=== PATIENT | female | born 1940 | race Caucasian/White ===

== ENCOUNTER → 2017-04-04 | Outpatient (CLI) | payer OTHER | LOC: FIMAGING 09:14 | PROVIDERS: ATTEND Internal Medicine | DX: Z12.31 Encounter for screening mammogram for malignant neoplasm of breast (principal); Z80.3 Family history of malignant neoplasm of breast | CPT/HCPCS: G0202 ==

== ENCOUNTER 2017-04-06 18:47 | Emergency (ER) | payer OTHER ==
[2017-04-06 19:12] VITALS: PULSE 58
--- NOTE | 2017-04-06 20:16 | EDPHY ---
H & P Time Seen by Provider: 04/06/17 19:22 HPI/ROS: CHIEF COMPLAINT: Fall, right shoulder injury HISTORY OF PRESENT ILLNESS: 76-year-old female presents to the emergency department with right shoulder injury. The patient was accidentally knocked over by her horse and landed on her right side 2 hours prior to arrival. She did not hit her head or lose consciousness. She denies neck or back pain. Denies chest pain or difficulty breathing. She was having some right lower quadrant abdominal pain although she feels that this is muscular. She denies injury to her lower extremities or her left upper extremity. She is right-hand dominant. Her pain in her shoulders especially worse with movement. REVIEW OF SYSTEMS: Constitutional: No fever, no chills. Eyes: No double or blurry vision. ENT: No sore throat. Respiratory: No cough, no shortness of breath. Cardiac: No chest pain. Gastrointestinal: No abdominal pain, vomiting or diarrhea. Genitourinary: No dysuria. Musculoskeletal: No neck or back pain. Skin: No rashes. Neurological: No headache. Past Medical/Surgical History: Orthopedic surgeries, hypertension, high cholesterol, heart issues Social History: Single and lives in [place] Smoking Status: Never smoked Physical Exam: General Appearance: Alert, no distress. No visible signs of trauma to her head. She is mentating normally and answering questions appropriately. Eyes: Pupils equal and round. Extraocular motions are all intact. ENT: Mouth: Mucous membranes moist. Respiratory: No wheezing, rhonchi, or rales, lungs are clear to auscultation. Cardiovascular: Regular rate and rhythm. Gastrointestinal: Abdomen is soft and nontender, no masses, no rebound or guarding, bowel sounds normal. Neurological: Alert and oriented x 3, cranial nerves II through XII grossly intact Skin: Warm and dry, no rashes. Musculoskeletal: Nontender to palpate along the cervical, thoracic or lumbar spine. Neck is supple. Extremities: Limited range of motion of the right shoulder secondary to pain. Full range of motion of her right wrist and right elbow. Normal and equal strength for the upper extremity bilaterally. She is able to fully internally rotate her right shoulder although this does cause pain. She does have some mild pain with palpation of the posterior, proximal aspect of the right shoulder. Psychiatric: Patient is oriented X 3, there is no agitation. Constitutional: Initial Vital Signs Heart Rate 58 L 07/26/17 19:08 Respiratory Rate 16 04/06/17 19:08 Blood Pressure 173/65 H 04/06/17 19:08 O2 Sat (%) 95 04/06/17 19:08 O2 Delivery Mode Room Air Allergies/Adverse Reactions: lisinopril Allergy (Verified 04/06/17 19:12) Home Medications: Medication Instructions Recorded Ezetimibe/Simvastatin [Vytorin 1 each PO 02/05/12 10-20 Mg Tablet] Levothyroxine [Synthroid 50 mcg mcg PO DAILY06 02/05/12 (RX)] Metoprolol Tartrate [Lopressor 50 25 mg PO BID 02/05/12 mg (RX)] VALSARTAN/HYDROCHLOROTHIAZIDE 1 each PO 02/05/12 [Diovan Hct 320-12.5 Mg Tab] celeCOXIB [Celebrex] 200 mg PO 02/05/12 Amlodipine Besylate 01/25/14 Aspirin 81mg (OTC) 01/25/14 Calcium 01/25/14 Daniela Red Krill 01/25/14 Multivitamin 01/25/14 Medical Decision Making - Diagnostics Imaging Results: Imaging Impressions Shoulder X-Ray 04/06/17 19:34 Impression: 1. Calcification adjacent to the greater tuberosity right proximal humerus could be related to small chip or avulsion fracture possibly from the rotator cuff tendon insertion. Procedures: Patient was placed in a sling and examined post application in good placement with normal [employer]. ED Course/Re-evaluation: 76-year-old female presents with right shoulder injury after she fell. Patient has possible avulsion fracture to humeral head. Clinically this patient likely has rotator cuff injury. She was placed in a sling and given orthopedic referral. Differential Diagnosis: Including but not limited to fracture, dislocation, contusion, sprain, rotator cuff injury. Departure - Departure Disposition: Home, Routine, Self-Care Clinical Impression: Sprain of right shoulder Qualifiers: Encounter type: initial encounter Shoulder sprain type: unspecified sprain Qualified Code(s): S43.401A - Unspecified sprain of right shoulder joint, initial encounter Condition: Good Instructions: Shoulder Sprain (ED) Additional Instructions: Sling for comfort and support. Ibuprofen 600mg every 8 hours for pain as directed. Return if you develop numbness or tingling in your fingers, increasing pain or any other concerns. Referrals: Dominic Dos Santos MD [Medical Doctor] - 5-7 days, call for appt. (Orthopedic surgeon on-call)
[2017-04-06 20:56] VITALS: BP 177/62; RESP 18; O2SAT 92
== END 2017-04-06 20:55 | disposition home or self-care (01) ==
DX: S43.401A Unspecified sprain of right shoulder joint, initial encounter (principal); I10 Essential (primary) hypertension; Z79.82 Long term (current) use of aspirin; W55.12XA Struck by horse, initial encounter
CPT/HCPCS: 73030; 99283; A4565

== ENCOUNTER → 2018-05-22 | Outpatient (CLI) | payer OTHER ==
--- NOTE | 2018-05-22 18:58 | ECHO ---
[email or web address] [address] [address] Main: [phone] Fax: [email or web address] Echocardiogram Name: DAYAN GARCIA MR#: [id number] Study Date: 05/22/2018 Study Time: 01:50 PM Date of : 1940 Age: 77 year(s) Height: 162.6 cm (64 in.) Weight: 68.95 kg (152 lb.) BSA: 1.74 m2 Gender: Female Examination: Echo Indication: near syncope, pvcs, discussed with dr fowler Image Quality: Adequate Contrast: Requested by: Nrom Terrell BP: / Heart Rate: Rhythm: Indication: near syncope, pvcs, discussed with dr fowler Procedure Staff [employer] Cashier: Ayesha Bailey TORREY Reading Physician: Rios Fowler MD Requesting Provider: Conclusions: Normal size left ventricle. Normal global systolic LV function. EF is 66 %. No regional wall motion abnormality. Grade 1 diastolic dysfunction (abnormal relaxation). The left atrium is mildly dilated. Mild mitral valve regurgitation is present. Mild aortic cusp calcification is noted. Mild to moderate aortic valve regurgitation. Mild tricuspid regurgitation is present. The pulmonary artery pressure is normal. Right ventricular systolic pressure measures 32mmHg. Measurements: Chambers Valvular Assessment AV/MV Valvular Assessment TV/PV Normal Normal Normal Name Value Range Name Value Range Name Value Range Ao Kayla (2D): 2.5 cm (1.4 cm-2.6 AV Vmax: 3.20 m/s (1 m/s-1.7 TR Vmax: 2.62 mm/s ( - ) cm) m/s) TR PGmax: 27 mmHg ( - ) IVSd (2D): 1.1 cm (0.6 cm-1.1 AV maxP mmHg ( - ) syst. PAP: 32 mmHg ( - ) cm) AV meanP mmHg ( - ) PV Vmax: 1.28 m/s (0.6 m/s-0.9 LVDd (2D): 4.2 cm (3.9 cm-5.3 PANCHO (VTI): 1.6 cm ( - ) m/s) cm) MV E Vmax: 0.74 m/s ( - ) PV PGmax: 7 mmHg ( - ) LVDs (2D): 2.7 cm (2.1 cm-4 MV A Vmax: 0.98 m/s ( - ) cm) MV E/A: 0.76 ( - ) LVPWd (2D): 1.1 cm ( - ) MV PHT: 0.081 s ( - ) LVOTd 1.6 cm 1.6 cm mm MVA (PHT): 2.7 s ( - ) LVEF (BP): 66 % (>=55 %) RVDd(2D): 3.5 cm (1.9 cm-3.8 cmmm) Patient: DAYAN GARCIA Study Date: 05/22/2018 Page 1 of 2 01:50 PM Continued Measurements: Chambers Valvular Assessment AV/MV Valvular Assessment TV/PV Name Value Name Value Name Value LADs: 3.7 cm MV DecTime: 282 m/s CVP (est.): 5 mmHg LADs Lon.8 cm MV E' Septal: 0.06 m/s LA Area: 19.2 cm2 MV E/E' Septal: 12.30 LA Volume: 60 ml MV E/E' Lateral: 10.60 LA Volume Index: 34.5 ml/m2 RA Area: 12.2 cm2 Additional Vessels Name Value Ao Ascendin.5 cm Inferior Vena Cava: 1.2 cm Findings: Left Ventricle: Normal size left ventricle. No LV hypertrophy. Normal global systolic LV function. EF is 66 %. No regional wall motion abnormality. Grade 1 diastolic dysfunction (abnormal relaxation). Right Ventricle: Normal size right ventricle. Normal RV function. Left Atrium: The left atrium is mildly dilated. Right Atrium: The right atrium is normal in size. Mitral Valve: The mitral valve is normal in appearance and function. Mild mitral valve regurgitation is present. No mitral stenosis is present. Aortic Valve: The aortic valve is tri-leaflet. Mild aortic cusp calcification is noted. Mild to moderate aortic valve regurgitation. Tricuspid Valve: The tricuspid valve is normal in appearance and function. Mild tricuspid regurgitation is present. The pulmonary artery pressure is normal. Right ventricular systolic pressure measures 32mmHg. Pulmonic Valve: The pulmonic valve is normal in appearance and function. There is no pulmonic regurgitation seen. Aorta: The aorta is normal. Normal size aortic root measuring 2.5 cm. Normal size ascending aorta measuring 3.5 cm. IVC: The IVC is normal sized. Pericardium: No pericardial effusion. No pleural effusion. (No Signature Object) Patient: DAYAN GARCIA Study Date: 05/22/2018 Page 2 of 2 01:50 PM [id number]
== END ==
LOC: FCP 13:26
PROVIDERS: ATTEND Internal Medicine Cardiovascular Disease
DX: I08.0 Rheumatic disorders of both mitral and aortic valves (principal); I70.0 Atherosclerosis of aorta